=== PATIENT | female | born 1975 | race Caucasian/White ===

== ENCOUNTER → 2016-12-06 | Outpatient (CLI) | payer OTHER ==
[~2016-12-06] MED LIST: BUPR-79 PO; CLIN300C2 PO; FLUT50SP22 NAE; FRCT/ PO; INSPMPHMLG; MAGN400T6 PO; MORP30TA PO; OXYC1TAB3 PO; PANT40TA PO; SERT100T PO; SIMV40TA2 PO; VNTHFA/IN INH
== END | disposition home or self-care (01) ==
LOC: C.RDSM 09:55
PROVIDERS: ATTEND Physical Medicine & Rehabilitation Sports Medicine
DX: M79.641 Pain in right hand (principal)

== ENCOUNTER → 2017-06-05 | Outpatient (CLI) | payer OTHER ==
[2017-06-05 15:01] LABS: TOTAL IRON BINDING CAPACITY 312 mcg/dl (250-450)
== END | disposition home or self-care (01) ==
LOC: C.LAB1850 13:49
PROVIDERS: ATTEND Internal Medicine Rheumatology
DX: M06.4 Inflammatory polyarthropathy (principal); M79.645 Pain in left finger(s); E11.618 Type 2 diabetes mellitus with other diabetic arthropathy